=== PATIENT | female | born 1955 | race Caucasian/White ===

== ENCOUNTER → 2016-06-21 | Outpatient (CLI) | payer BC | END | disposition home or self-care (01) | LOC: LAB.O 08:41 | PROVIDERS: ATTEND Nurse Practitioner Family | DX: E03.9 Hypothyroidism, unspecified (principal); I10 Essential (primary) hypertension ==

== ENCOUNTER → 2017-08-11 | Outpatient (CLI) | payer OTHER | LOC: GMAL 11:11 | PROVIDERS: ATTEND Family Medicine | DX: D51.3 Other dietary vitamin B12 deficiency anemia (principal); E06.3 Autoimmune thyroiditis; E55.9 Vitamin D deficiency, unspecified; R53.83 Other fatigue ==

== ENCOUNTER → 2017-12-26 | Outpatient (CLI) | payer OTHER ==
--- NOTE | 2017-12-26 11:33 | US ---
EXAM DESCRIPTION: Renal: Ultrasound. 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 Screening for renal lesions. Patient has pulmonary cysts. COMPARISON: None. TECHNIQUE: Transcutaneous scanning: Two-dimensional and Doppler modes. FINDINGS: Right kidney measures 9.1 x 4.9 x 3.7 cm; mid-renal cortical thickness normal . Normal echogenicity. No hydronephrosis No echogenic stones. Smooth contour of the kidney with no perinephric fluid. No fatty masses. Proximal ureter not visualized. Left kidney measures 8.4 x 5.2 x 4.7 cm; mid-renal cortical thickness normal. Normal echogenicity. No hydronephrosis. No echogenic stones. Smooth contour of the kidney with no perinephric fluid. No fatty masses. Proximal ureter not visualized. Urinary bladder not visualized. Abdominal aorta diameter not measured. IMPRESSION: No cysts, solid complex or fatty masses, in the kidneys bilaterally. Normal size with normal cortical thickness and echogenicity. No hydronephrosis or perinephric fluid. If clinical findings of renal dysfunction are present, consider follow-up abdomen and pelvis CT scan without and with IV contrast. Electronically signed by: Josue Hamm MD 12/26/2017 11:32 AM [employer]
== END ==
LOC: US 08:30
PROVIDERS: ATTEND Family Medicine
DX: C64.1 Malignant neoplasm of right kidney, except renal pelvis (principal)

== ENCOUNTER → 2018-03-16 | Outpatient (CLI) | payer OTHER | LOC: GMAL 11:03 | PROVIDERS: ATTEND Family Medicine | DX: E06.3 Autoimmune thyroiditis (principal) ==

== ENCOUNTER 2018-09-09 05:40 | Day surgery (SDC) | payer OTHER ==
[2018-09-09] MEDS: LACTATED RINGERS 1,000 ML ONE (07:30)
[2018-09-09] MEDS ORDERED: ONDANSETRON INJ 4 MG/2 ML VIAL ONE (07:42)
[2018-09-09 08:06] VITALS: TEMP 97.9
[2018-09-09 08:39] VITALS: BP 84/39; O2SAT 93
--- NOTE | 2018-09-09 09:12 | OP ---
DATE OF PROCEDURE: 09/09/18 PREOPERATIVE DIAGNOSIS: 1. History of colonic polyps. POSTOPERATIVE DIAGNOSIS: 1. Colonic polyps. PROCEDURE: 1. Colonoscopy with polypectomy. SURGEON: Kiran Bennett MD ANESTHESIA: Monitored anesthesia care. ESTIMATED BLOOD LOSS: Less than 5 mL. COMPLICATIONS: None. PROCEDURE: The patient was placed in the left lateral decubitus position. A time-out was performed. After deep sedation was achieved, the Olympus adult colonoscope was inserted through anus, into the rectum and advanced to the cecum under direct visualization. The cecum was identified by the ileocecal valve and the appendiceal orifice. Photodocumentation of these locations was performed. The patients bowel preparation was fair, improved to a good prep with extensive water lavage and suctioning. The endoscope was then progressively withdrawn and the total colonic lumen evaluated. Retroflexion was performed in the rectum. The endoscope was then withdrawn and the procedure terminated. The patient tolerated the procedure well with no immediate complications. FINDINGS: 1. Four sessile polyps ranging in size from 3 mm to 6 mm were found throughout the transverse colon. These polyps were removed with cold biopsy forceps and cold snare, completely resected and retrieved for pathology. 2. Two colonic polyps found in the sigmoid colon, sessile in nature, ranging in size from 4 to 5 mm, removed with a cold snare and retrieved for pathology. 3. One 8 mm flat polyp found in the sigmoid colon, removed with a hot snare and retrieved for pathology. IMPRESSION: 1. Colonic polyps, removed as above. RECOMMENDATIONS: 1. Okay to discharge home once the patient meets discharge criteria. 2. Resume prior diet. 3. Resume home medications. 4. Repeat colonoscopy in 3 to 5 years depending on pathology results. 5. Follow with referring physician as previously scheduled.months. #[id number] [facility]
[2018-09-09] MEDS ORDERED: PROPOFOL 200 MG/20 ML VIAL IV ONE (10:00)
[2018-09-09] MEDS ORDERED: LIDOCAINE 1% 10 ML VIAL INJ ONE (10:00)
== END 2018-09-09 08:55 | disposition home or self-care (01) ==
LOC: AMB 05:40
PROVIDERS: ATTEND Internal Medicine Gastroenterology
DX: Z12.11 Encounter for screening for malignant neoplasm of colon (principal); D12.5 Benign neoplasm of sigmoid colon; D12.3 Benign neoplasm of transverse colon; K63.5 Polyp of colon; E06.3 Autoimmune thyroiditis; Z86.010 Personal history of colon polyps; Z88.2 Allergy status to sulfonamides
CPT/HCPCS: 00812; 45380; 45385; 88305; J2405; J3490; J7120

== ENCOUNTER → 2018-09-23 | Outpatient (CLI) | payer OTHER | LOC: GMAL 11:07 | PROVIDERS: ATTEND Family Medicine | DX: D51.3 Other dietary vitamin B12 deficiency anemia (principal); E55.9 Vitamin D deficiency, unspecified; Z79.899 Other long term (current) drug therapy; Z13.220 Encounter for screening for lipoid disorders ==